=== PATIENT | male | born 1970 | race Caucasian/White ===

== ENCOUNTER 2017-03-31 12:42 | Emergency (ER) | payer BC, OTHER, SELFPAY ==
[~2017-03-31] VITALS: Ht 185.4 cm; Wt 125.0 kg
[2017-03-31] MEDS ORDERED: LISINOPRIL 10 MG TABLET PO ONE (13:30)
[2017-03-31 14:43] VITALS: BP 182/114
== END 2017-03-31 14:45 | disposition home or self-care (01) ==
LOC: ED 14:20
DX: I10 Essential (primary) hypertension (principal)
CPT/HCPCS: 36415; 93005; 99285

== ENCOUNTER 2017-11-22 09:39 | Emergency (ER) | payer OTHER ==
[~2017-11-22] VITALS: Ht 182.9 cm; Wt 123.6 kg
[2017-11-22] MEDS ORDERED: HYDR25TA6 PO (09:51)
[2017-11-22] MEDS ORDERED: SPIR25TA3 PO (09:52)
[2017-11-22] MEDS ORDERED: LISI2.5T PO (09:53)
[2017-11-22] MEDS ORDERED: SODIUM CHLORIDE FLUSH 10ML SYR IVF ONE (10:00)
[2017-11-22] MEDS ORDERED: PROPOFOL 10 MG/ML, 20ML IVPush ONE (10:00)
[2017-11-22] MEDS ORDERED: VERAPAMIL 2.5 MG/ML, 2ML IVPush ONE (10:00)
[2017-11-22] MEDS ORDERED: PROPOFOL 10 MG/ML, 20ML ONE (10:13)
[2017-11-22 10:15] LABS: BASOPHILS # (AUTO) 0.03 x10^3/uL (0-0.1); BASOPHILS % (AUTO) 0 % (0-1); EOSINOPHILS # (AUTO) 0.13 x10^3/uL (0-0.4); EOSINOPHILS % (AUTO) 2 % (1-7); LYMPHOCYTES # (AUTO) 1.28 x10^3/uL (1-3.4); LYMPHOCYTES % (AUTO) 17 % (22-44); MD NO; MEAN CORPUSCULAR HEMOGLOBIN 29.9 pg (27.5-34.5); MEAN CORPUSCULAR HGB CONC 33.9 g/dL (33.2-36.2); MEAN CORPUSCULAR VOLUME 88.3 fL (81-97); MEAN PLATELET VOLUME 8.5 fL (7.4-10.4); MONOCYTES # (AUTO) 0.54 x10^3/uL (0.2-0.8); MONOCYTES % (AUTO) 7 % (2-9); NEUTROPHILS # (AUTO) 5.74 x10^3/uL (1.8-6.8); NEUTROPHILS % (AUTO) 74 % (42-75); PLATELET COUNT 272 x10^3/uL (130-400); RED BLOOD COUNT 5.45 x10^6/uL (4.38-5.82); RED CELL DISTRIBUTION WIDTH 13.8 % (9.4-14.8)
[2017-11-22 10:22] LABS: INTERNATIONAL NORMALIZED RATIO 0.97 (0.93-1.1)
[2017-11-22 10:26] LABS: ALANINE AMINOTRANSFERASE 28 U/L (12-78); ALBUMIN 3.9 g/dL (3.4-5.0); ANION GAP 7 mmol/L (5-15); CALCIUM 8.7 mg/dL (8.5-10.1); CHLORIDE 112 mmol/L (98-107)
[2017-11-22] MEDS ORDERED: RIVAROXABAN 20 MG TABLET PO ONE (10:30)
[2017-11-22 10:31] LABS: ALKALINE PHOSPHATASE 82 U/L (45-117); BILIRUBIN,TOTAL 0.6 mg/dL (0.2-1.0); CREATININE 0.85 mg/dL (0.7-1.3); TOTAL PROTEIN 7.5 g/dL (6.4-8.2); TROPONIN I 0.078 ng/mL (0.000-0.045)
[2017-11-22] MEDS ORDERED: RIVAROXABAN 20 MG TABLET ONE (11:06)
[2017-11-22 11:51] VITALS: BP 121/82
== END 2017-11-22 11:59 | disposition home or self-care (01) ==
LOC: ED 11:51
DX: I48.91 Unspecified atrial fibrillation (principal); I10 Essential (primary) hypertension; Z88.0 Allergy status to penicillin
CPT/HCPCS: 36415; 71045; 80053; 83735; 83880; 84443; 84484; 85025; 85610; 93005; 99291

== ENCOUNTER → 2017-12-31 | Outpatient (CLI) | payer OTHER ==
[~2017-12-31] MED LIST: HYDR25TA6 PO; LISI2.5T PO; SPIR25TA3 PO
== END | disposition home or self-care (01) ==
LOC: CVU 07:37
PROVIDERS: ATTEND Internal Medicine Cardiovascular Disease
DX: I48.91 Unspecified atrial fibrillation (principal); I10 Essential (primary) hypertension; R94.31 Abnormal electrocardiogram [ECG] [EKG]
CPT/HCPCS: 93306

== ENCOUNTER 2018-11-17 18:06 | Emergency (ER) | payer OTHER ==
[~2018-11-17] VITALS: Ht 182.9 cm; Wt 111.5 kg
[~2018-11-17 18:06] MED LIST changes: -SPIR25TA3 PO; +SPIR25TA5 PO
[2018-11-17 18:26] VITALS: BP 138/73
[2018-11-17] MEDS ORDERED: IBUPROFEN 800 MG TABLET ONE (18:53)
[2018-11-17] MEDS ORDERED: DIPH,PERTUSS(ACELL),TET VAC/PF 0.5 ML IM-VACC ONE ×2 (19:00→19:06)
[2018-11-17] MEDS ORDERED: IBUPROFEN 800 MG TABLET PO ONE (19:00)
--- NOTE | 2018-11-17 19:12 | NUR ---
PT PRESENTS TO ED WITH C/O LEFT ANKLE PAIN AFTER PILE OF WOOD "SLOWLY" FELL ON LEFT ANKLE THIS PM. CMS INTACT, LEFT DORSALIS PEDIS PULSE 3+. PT A&O, RESPS EVEN AND UNLABORED, NADN. AWAITING XRAY RESULTS AND DISPO.
== END 2018-11-17 19:49 | disposition home or self-care (01) ==
LOC: ED 19:43
DX: S90.02XA Contusion of left ankle, initial encounter (principal); I10 Essential (primary) hypertension; I48.91 Unspecified atrial fibrillation; X58.XXXA Exposure to other specified factors, initial encounter; Y93.89 Activity, other specified; Y92.009 Unspecified place in unspecified non-institutional (private) residence as the place of occurrence of the external cause; Y99.8 Other external cause status
CPT/HCPCS: 90471; 90715